=== PATIENT | male | born 1965 | race African-American/Black ===

== ENCOUNTER 2022-12-31 10:08 | Emergency (ER) | payer OTHER, MEDICAID ==
[~2022-12-31] VITALS: Ht 172.7 cm; Wt 88.4 kg
[2022-12-31 11:34] VITALS: BP 156/94; PULSE 94; RESP 18; TEMP 98.6; O2SAT 97
[2022-12-31] MEDS ORDERED: PRED20TA2 PO (11:50)
== END 2022-12-31 11:55 | disposition home or self-care (01) ==
LOC: ER 10:08
DX: S16.1XXA Strain of muscle, fascia and tendon at neck level, initial encounter (principal); M50.10 Cervical disc disorder with radiculopathy, unspecified cervical region; E11.9 Type 2 diabetes mellitus without complications; I10 Essential (primary) hypertension; W18.00XA Striking against unspecified object with subsequent fall, initial encounter; Y93.89 Activity, other specified; Y92.89 Other specified places as the place of occurrence of the external cause; Y99.8 Other external cause status
CPT/HCPCS: 72040